=== PATIENT | male | born 1950 | race Caucasian/White ===

== ENCOUNTER 2016-11-25 08:55 | Inpatient (IN) | payer OTHER ==
[~2016-11-25] VITALS: Ht 182.9 cm; Wt 90.8 kg
[2016-11-25] VITALS (16 sets, daily range): BP systolic 107–149; BP diastolic 61–93
[~2016-11-25 08:55] MED LIST: AMARYL2 MG PO; AMLODIPINE-VAL1 EACH PO; CELEXA20 MG PO; ERGOCALCIF50000 UNIT PO; FLONASE16 G1 BOTH NARES; METFORMIN HCL500 M1 PO; PRILOSEC OTC20 MG PO; SINGULAIR10 MG PO; WELLBUTRIN XL150 MG PO
[2016-11-25 09:38] LABS: BASOPHIL COUNT 0.1 K/uL (0-0.1); EOSINOPHIL (%) 1.1 % (0-5); EOSINOPHIL COUNT 0.2 K/uL (0-0.3); HEMATOCRIT 18.5 % (38.0-50.0); IMMATURE GRANULOCYTE (%) 0.4 % (0.0-0.7); IMMATURE GRANULOCYTE COUNT 0.7 K/uL; LYMPHOCYTE COUNT 1.9 K/uL (1.0-2.8); MCH 24.8 PG (29.0-34.0); MCHC 30.3 G/DL (30.0-36.0); MCV 81.9 FL (86-99); MEAN PLAT.VOLUME 9.9 uM^3 (9.0-12.4); MONOCYTE (%) 5.5 % (3-12); MONOCYTE COUNT 0.9 K/uL (0-0.8); NEUTROPHIL (%) 80.6 % (45-76); NEUTROPHIL COUNT 12.7 K/uL (1.8-6.4); PLATELET COUNT 436 K/uL (156-360); RBC DIS.WIDTH-CV 14.8 % (11.8-14.6); RBC DIS.WIDTH-SD 41.9 % (39-53); RED BLOOD COUNT 2.26 M/uL (4.00-5.50); WHITE BLOOD COUNT 15.8 K/uL (4.1-10.2)
[2016-11-25 09:50] LABS: INTER. NORMALIZED RATIO 1.1; PROTHROMBIN TIME 10.8 (9.2-11.2); PTT 21.9 (25-32)
[2016-11-25 09:53] LABS: CHLORIDE 97 mEq/L (99-109); POTASSIUM 4.4 mEq/L (3.7-5.4); SODIUM 128 mEq/L (136-147)
[2016-11-25 09:55] LABS: GLUCOSE 283 mg/dL (70-99)
[2016-11-25 09:56] LABS: ANION GAP 17 MEQ/L (2-14)
[2016-11-25 09:59] LABS: GFR ESTIMATE (CALCULATED) > 59 mL/min/
[2016-11-25 10:01] LABS: TROP-I INTERPRETATION NEGATIVE; TROPONIN-I < 0.01 ng/mL (0.0-0.30)
[2016-11-25 10:06] LABS: UREA NITROGEN (BUN) 34 mg/dL (9-23)
[2016-11-25 10:16] LABS: HEMATOLOGY COMMENT 1 SMEAR COMPATIBLE; USER ID SDF
[2016-11-25] MEDS ORDERED: GLIMEPIRIDE2 MG PO (11:11)
[2016-11-25] MEDS ORDERED: METFORMIN HCL500 MG PO (11:12)
[2016-11-25] MEDS ORDERED: METFORMIN HCL500 M1 PO (11:13)
[2016-11-25 14:39] LABS: POINT-OF-CARE METER ID UU13113702
[2016-11-25 16:53] LABS: ADD MIUA? NO; BILIRUBIN NEGATIVE; BLOOD NEGATIVE; COLOR YELLOW ((YELLOW)); GLUCOSE (STRIP) 250; KETONES 15; LEUKOCYTES NEGATIVE; NITRITE NEGATIVE; PROTEIN (STRIP) NEGATIVE; SPECIFIC GRAVITY 1.024 (1.000-1.030); UCUL ADDED? NO; UROBILINOGEN 0.2 MG/DL (0.2-1.0)
[2016-11-25 21:23] LABS: POINT-OF-CARE METER ID UU14174216
[2016-11-25 21:59] LABS: HEMATOCRIT 22.5 % (38.0-50.0); MCV 80.1 FL (86-99)
[2016-11-26 00:43] VITALS: BP 125/66
[2016-11-26 02:11] LABS: HEMATOCRIT 23.1 % (38.0-50.0); MCV 79.4 FL (86-99)
[2016-11-26 03:59] VITALS: BP 148/72
[2016-11-26 05:53] LABS: POINT-OF-CARE METER ID UU13113698
[2016-11-26 06:45] LABS: HEMATOCRIT 22.4 % (38.0-50.0)
[2016-11-26 07:13] VITALS: BP 139/73
[2016-11-26 09:14] LABS: ALKALINE PHOSPHATASE 45 IU/L (3-129); ANION GAP 8 MEQ/L (2-14); CHLORIDE 102 MEQ/L (99-109); GFR ESTIMATE (CALCULATED) > 59 mL/min/; POTASSIUM 4.1 MEQ/L (3.7-5.4); SAMPLE HEMOLYSIS CHECK 0; SAMPLE ICTERIC CHECK 0; SAMPLE LIPEMIA CHECK 0; SODIUM 132 MEQ/L (136-147); TOTAL BILIRUBIN 0.6 MG/DL (0.0-1.0); UREA NITROGEN (BUN) 21 mg/dL (9-23)
[2016-11-26 09:23] LABS: GLUCOSE 117 mg/dL (70-99)
[2016-11-26 11:47] VITALS: BP 140/67
[2016-11-26 12:56] LABS: HEMATOCRIT 22.8 % (38.0-50.0); MCV 80.3 FL (86-99)
[2016-11-26 16:10] VITALS: BP 118/70
[2016-11-26 18:11] LABS: HEMATOCRIT 23.2 % (38.0-50.0); MCV 80.3 FL (86-99)
[2016-11-26 20:20] VITALS: BP 125/76
[2016-11-27] VITALS (12 sets, daily range): BP systolic 118–155; BP diastolic 65–83
[2016-11-27 01:15] LABS: POINT-OF-CARE METER ID UU14174216
[2016-11-27 06:49] LABS: EOSINOPHIL (%) 3.1 % (0-5); EOSINOPHIL COUNT 0.3 K/uL (0-0.3); HEMATOCRIT 21.2 % (38.0-50.0); IMMATURE GRANULOCYTE (%) 0.2 % (0.0-0.7); LYMPHOCYTE COUNT 1.4 K/uL (1.0-2.8); MCV 81.9 FL (86-99); MONOCYTE (%) 11.5 % (3-12); NEUTROPHIL (%) 67.7 % (45-76); NEUTROPHIL COUNT 5.7 K/uL (1.8-6.4); RBC DIS.WIDTH-SD 47.3 % (39-53); RED BLOOD COUNT 2.59 M/uL (4.00-5.50)
[2016-11-27 06:54] LABS: WHITE BLOOD COUNT 8.4 K/uL (4.1-10.2)
[2016-11-27 07:03] LABS: ANION GAP 6 MEQ/L (2-14); CHLORIDE 102 MEQ/L (99-109); GFR ESTIMATE (CALCULATED) > 59 mL/min/; GLUCOSE 111 mg/dL (70-99); SAMPLE HEMOLYSIS CHECK 0; SAMPLE ICTERIC CHECK 0; SAMPLE LIPEMIA CHECK 0; SODIUM 133 MEQ/L (136-147); UREA NITROGEN (BUN) 9 mg/dL (9-23)
[2016-11-27 07:47] LABS: MEAN PLAT.VOLUME 9.8 uM^3 (9.0-12.4)
[2016-11-27 08:48] LABS: PLATELET COUNT 240 K/uL (156-360)
[2016-11-27 21:10] LABS: POINT-OF-CARE METER ID UU13113781
[2016-11-28] VITALS (7 sets, daily range): BP systolic 119–159; BP diastolic 56–90
[2016-11-28 07:22] LABS: ALKALINE PHOSPHATASE 54 IU/L (3-129); ANION GAP 8 MEQ/L (2-14); CHLORIDE 101 MEQ/L (99-109); GFR ESTIMATE (CALCULATED) > 59 mL/min/; GLUCOSE 122 mg/dL (70-99); SAMPLE HEMOLYSIS CHECK 0; SAMPLE ICTERIC CHECK 0; SAMPLE LIPEMIA CHECK 0; SODIUM 133 MEQ/L (136-147); TOTAL BILIRUBIN 0.5 MG/DL (0.0-1.0); UREA NITROGEN (BUN) 8 mg/dL (9-23)
[2016-11-28 07:38] LABS: EOSINOPHIL (%) 3.3 % (0-5); EOSINOPHIL COUNT 0.3 K/uL (0-0.3); HEMATOCRIT 26.6 % (38.0-50.0); IMMATURE GRANULOCYTE (%) 0.2 % (0.0-0.7); LYMPHOCYTE COUNT 1.3 K/uL (1.0-2.8); MCH 27.4 PG (29.0-34.0); MCHC 33.1 G/DL (30.0-36.0); MCV 82.9 FL (86-99); MEAN PLAT.VOLUME 9.8 uM^3 (9.0-12.4); MONOCYTE (%) 12.1 % (3-12); MONOCYTE COUNT 1.1 K/uL (0-0.8); NEUTROPHIL (%) 69.5 % (45-76); NEUTROPHIL COUNT 6.1 K/uL (1.8-6.4); PLATELET COUNT 247 K/uL (156-360); RBC DIS.WIDTH-CV 15.7 % (11.8-14.6); RBC DIS.WIDTH-SD 47.2 % (39-53); WHITE BLOOD COUNT 8.7 K/uL (4.1-10.2)
[2016-11-28 07:41] LABS: RED BLOOD COUNT 3.21 M/uL (4.00-5.50)
[2016-11-28 14:08] LABS: POINT-OF-CARE METER ID UU13113819
[2016-11-29 06:20] LABS: POINT-OF-CARE METER ID UU13113717
[2016-11-29 08:38] LABS: EOSINOPHIL COUNT 0.2 K/uL (0-0.3); HEMATOCRIT 30.2 % (38.0-50.0); IMMATURE GRANULOCYTE (%) 0.3 % (0.0-0.7); LYMPHOCYTE COUNT 0.9 K/uL (1.0-2.8); MCH 27.2 PG (29.0-34.0); MCHC 32.1 G/DL (30.0-36.0); MCV 84.8 FL (86-99); MEAN PLAT.VOLUME 10.2 uM^3 (9.0-12.4); MONOCYTE (%) 10.7 % (3-12); MONOCYTE COUNT 0.8 K/uL (0-0.8); NEUTROPHIL (%) 73.5 % (45-76); NEUTROPHIL COUNT 5.6 K/uL (1.8-6.4); PLATELET COUNT 296 K/uL (156-360); RBC DIS.WIDTH-CV 15.9 % (11.8-14.6); RBC DIS.WIDTH-SD 48.7 % (39-53); RED BLOOD COUNT 3.56 M/uL (4.00-5.50); WHITE BLOOD COUNT 7.6 K/uL (4.1-10.2)
[2016-11-29 08:40] VITALS: BP 144/81
[2016-11-29 11:37] LABS: POINT-OF-CARE METER ID UU13113717
== END 2016-11-29 12:43 | disposition home or self-care (01) | DRG 378 ==
LOC: EME 08:55 → 4EAST 10:04 → 5EAST 10:04 → EDOF 10:04 → 4EAST 19:02 → 5EAST 11-28 23:57
PROVIDERS: Emergency Medicine; Hospitalist; Internal Medicine
PROC: 30233N1 Transfusion of Nonautologous Red Blood Cells into Peripheral Vein, Percutaneous Approach (ICD-10-PCS; principal; 2016-11-25)
PROC: 0DB38ZX Excision of Lower Esophagus, Via Natural or Artificial Opening Endoscopic, Diagnostic (ICD-10-PCS; 2016-11-28)
DX: K92.2 Gastrointestinal hemorrhage, unspecified (principal); K22.8 Other specified diseases of esophagus; D62 Acute posthemorrhagic anemia; E87.2 Acidosis; I10 Essential (primary) hypertension; E11.9 Type 2 diabetes mellitus without complications; D50.0 Iron deficiency anemia secondary to blood loss (chronic); K59.00 Constipation, unspecified; K21.9 Gastro-esophageal reflux disease without esophagitis; R63.0 Anorexia; E87.1 Hypo-osmolality and hyponatremia
CPT/HCPCS: 71010; 74000; 80048; 80053; 81003; 82948; 84484; 85014; 85018; 85025; 85610; 85730; 86850; 86900; 86901; 86920; 87169; 87177; 88305; 88341 TC; 88342 TC; 93005; 99281; 99285; B4087; C9113; J1815; J7030; J7120; P9016

== ENCOUNTER 2016-12-05 23:38 | Emergency (ER) | payer OTHER ==
[~2016-12-05] VITALS: Ht 182.9 cm; Wt 100.0 kg
[~2016-12-05 23:38] MED LIST changes: +GLIMEPIRIDE2 MG PO; +METFORMIN HCL500 MG PO
[2016-12-06 00:05] LABS: HEMATOCRIT 18.8 % (38.0-50.0); MCH 26.1 PG (29.0-34.0); MCHC 30.9 G/DL (30.0-36.0); MCV 84.7 FL (86-99); MEAN PLAT.VOLUME 10.4 uM^3 (9.0-12.4); RBC DIS.WIDTH-CV 15.1 % (11.8-14.6); RBC DIS.WIDTH-SD 44.1 % (39-53); RED BLOOD COUNT 2.22 M/uL (4.00-5.50); WHITE BLOOD COUNT 17.3 K/uL (4.1-10.2)
[2016-12-06 00:06] LABS: PLATELET COUNT 496 K/uL (156-360)
[2016-12-06 00:08] LABS: CHLORIDE 97 mEq/L (99-109); POTASSIUM 4.4 mEq/L (3.7-5.4); SODIUM 130 mEq/L (136-147)
[2016-12-06 00:09] LABS: GLUCOSE 222 mg/dL (70-99)
[2016-12-06 00:11] LABS: ANION GAP 18 MEQ/L (2-14)
[2016-12-06 00:13] LABS: GFR ESTIMATE (CALCULATED) > 59 mL/min/
[2016-12-06 00:14] LABS: UREA NITROGEN (BUN) 21 mg/dL (9-23)
[2016-12-06 01:42] LABS: PROTHROMBIN TIME 10.5 (9.2-11.2)
[2016-12-06 01:50] LABS: PTT 19.8 (25-32)
[2016-12-06 02:03] VITALS: BP 127/71
[2016-12-06 02:23] VITALS: BP 108/66
[2016-12-06 03:00] VITALS: BP 122/67
== END 2016-12-06 03:09 | disposition short-term general hospital (02) ==
LOC: EME 23:38
PROVIDERS: Emergency Medicine
PROC: 30233N1 Transfusion of Nonautologous Red Blood Cells into Peripheral Vein, Percutaneous Approach (ICD-10-PCS; principal; 2016-12-05)
DX: K92.0 Hematemesis (principal); D64.9 Anemia, unspecified; C15.9 Malignant neoplasm of esophagus, unspecified; I10 Essential (primary) hypertension; E11.9 Type 2 diabetes mellitus without complications
CPT/HCPCS: 80048; 85027; 85610; 85730; 86850; 86900; 86901; 86920; 99281; 99285; C9113; J2405; J7030; P9016

== ENCOUNTER 2016-12-15 00:26 | Inpatient (IN) | payer OTHER ==
[~2016-12-15] VITALS: Ht 182.9 cm; Wt 90.0 kg
[2016-12-15] VITALS (16 sets, daily range): BP systolic 109–159; BP diastolic 69–83
[2016-12-15 00:56] LABS: HEMATOCRIT 18.8 % (38.0-50.0); MCH 26.2 PG (29.0-34.0); MCHC 30.9 G/DL (30.0-36.0); MCV 85.1 FL (86-99); MEAN PLAT.VOLUME 9.6 uM^3 (9.0-12.4); PLATELET COUNT 465 K/uL (156-360); RBC DIS.WIDTH-SD 43.9 % (39-53); RED BLOOD COUNT 2.21 M/uL (4.00-5.50); WHITE BLOOD COUNT 12.4 K/uL (4.1-10.2)
[2016-12-15 01:00] LABS: CHLORIDE 102 mEq/L (99-109); POTASSIUM 4.1 mEq/L (3.7-5.4); SODIUM 132 mEq/L (136-147)
[2016-12-15 01:02] LABS: GLUCOSE 137 mg/dL (70-99)
[2016-12-15 01:03] LABS: ANION GAP 12 MEQ/L (2-14)
[2016-12-15 01:05] LABS: GFR ESTIMATE (CALCULATED) > 59 mL/min/
[2016-12-15 01:06] LABS: UREA NITROGEN (BUN) 13 mg/dL (9-23)
[2016-12-15 01:42] LABS: INTER. NORMALIZED RATIO 1.1; PROTHROMBIN TIME 10.8 (9.2-11.2); PTT 24.5 (25-32)
[2016-12-15 01:49] LABS: TROP-I INTERPRETATION NEGATIVE; TROPONIN-I < 0.01 ng/mL (0.0-0.30)
[2016-12-15 04:08] LABS: ADD MIUA? NO; BILIRUBIN NEGATIVE; BLOOD NEGATIVE; COLOR YELLOW ((YELLOW)); GLUCOSE (STRIP) 100; KETONES NEGATIVE; LEUKOCYTES NEGATIVE; NITRITE NEGATIVE; PROTEIN (STRIP) NEGATIVE; UCUL ADDED? NO; UROBILINOGEN 0.2 MG/DL (0.2-1.0)
[2016-12-15 13:21] LABS: HEMATOCRIT 22.1 % (38.0-50.0); MCV 84.7 FL (86-99)
[2016-12-15 13:32] LABS: CHLORIDE 100 mEq/L (99-109); POTASSIUM 3.9 mEq/L (3.7-5.4); SODIUM 131 mEq/L (136-147)
[2016-12-15 13:34] LABS: GLUCOSE 126 mg/dL (70-99)
[2016-12-15 13:36] LABS: ANION GAP 11 MEQ/L (2-14)
[2016-12-15 13:38] LABS: GFR ESTIMATE (CALCULATED) > 59 mL/min/
[2016-12-15 13:39] LABS: UREA NITROGEN (BUN) 24 mg/dL (9-23)
[2016-12-15] MEDS ORDERED: COMPAZINE10 MG PO (16:35)
[2016-12-15] MEDS ORDERED: ZOFRAN4 MG PO (16:36)
[2016-12-16] VITALS (9 sets, daily range): BP systolic 121–142; BP diastolic 66–80
[2016-12-16 09:28] LABS: HEMATOCRIT 21.2 % (38.0-50.0); MCV 84.8 FL (86-99); RBC DIS.WIDTH-CV 14.8 % (11.8-14.6); RBC DIS.WIDTH-SD 45.6 % (39-53); WHITE BLOOD COUNT 11.5 K/uL (4.1-10.2)
[2016-12-16 10:33] LABS: ANION GAP 7 MEQ/L (2-14); CHLORIDE 100 MEQ/L (99-109); GFR ESTIMATE (CALCULATED) > 59 mL/min/; GLUCOSE 156 mg/dL (70-99); POTASSIUM 4.3 MEQ/L (3.7-5.4); SAMPLE HEMOLYSIS CHECK 0; SAMPLE ICTERIC CHECK 0; SAMPLE LIPEMIA CHECK 0; SODIUM 129 MEQ/L (136-147); UREA NITROGEN (BUN) 26 mg/dL (9-23)
[2016-12-16 11:05] LABS: MEAN PLAT.VOLUME 9.8 uM^3 (9.0-12.4)
[2016-12-16 11:06] LABS: PLATELET COUNT 267 K/uL (156-360)
[2016-12-17 00:16] VITALS: BP 136/74
[2016-12-17 04:04] VITALS: BP 135/77
[2016-12-17 07:09] VITALS: BP 135/80
[2016-12-17 07:18] LABS: HEMATOCRIT 24.4 % (38.0-50.0); MCH 28.2 PG (29.0-34.0); MCHC 33.2 G/DL (30.0-36.0); PLATELET COUNT 249 K/uL (156-360); RBC DIS.WIDTH-CV 15.4 % (11.8-14.6); RBC DIS.WIDTH-SD 47.5 % (39-53); RED BLOOD COUNT 2.87 M/uL (4.00-5.50); WHITE BLOOD COUNT 9.5 K/uL (4.1-10.2)
[2016-12-17 07:45] LABS: ANION GAP 7 MEQ/L (2-14); CHLORIDE 102 MEQ/L (99-109); GFR ESTIMATE (CALCULATED) > 59 mL/min/; GLUCOSE 119 mg/dL (70-99); POTASSIUM 4.2 MEQ/L (3.7-5.4); SAMPLE HEMOLYSIS CHECK 0; SAMPLE ICTERIC CHECK 0; SAMPLE LIPEMIA CHECK 0; SODIUM 133 MEQ/L (136-147); UREA NITROGEN (BUN) 12 mg/dL (9-23)
[2016-12-17 10:51] VITALS: BP 132/73
[2016-12-17 12:56] LABS: HEMATOCRIT 25.4 % (38.0-50.0); MCV 84.9 FL (86-99)
[2016-12-17 16:01] VITALS: BP 111/65
== END 2016-12-17 16:17 | disposition home or self-care (01) | DRG 375 ==
LOC: EME 00:26 → EDOF 04:12 → 5EAST 14:23 → EDOF 14:23 → 5EAST 15:58
PROVIDERS: Emergency Medicine; Hospitalist; Internal Medicine; Physician Assistant Medical
PROC: 30233N1 Transfusion of Nonautologous Red Blood Cells into Peripheral Vein, Percutaneous Approach (ICD-10-PCS; principal; 2016-12-15)
PROC: 3E03305 Introduction of Other Antineoplastic into Peripheral Vein, Percutaneous Approach (ICD-10-PCS; 2016-12-16)
PROC: DD0 Radiation Therapy, Gastrointestinal System, Beam Radiation (ICD-10-PCS; 2016-12-16)
DX: C15.5 Malignant neoplasm of lower third of esophagus (principal); D62 Acute posthemorrhagic anemia; K92.1 Melena; E87.2 Acidosis; E87.1 Hypo-osmolality and hyponatremia; D72.89 Other specified disorders of white blood cells; E11.9 Type 2 diabetes mellitus without complications; I10 Essential (primary) hypertension; E78.5 Hyperlipidemia, unspecified; K21.9 Gastro-esophageal reflux disease without esophagitis; F32.9 Major depressive disorder, single episode, unspecified; F41.9 Anxiety disorder, unspecified; Z87.891 Personal history of nicotine dependence
CPT/HCPCS: 71020; 77280; 77295; 77300; 77334; 77412; 80048; 80048 91; 81003; 83605; 84484; 85014; 85018; 85027; 85610; 85730; 86850; 86900; 86901; 86920; 87040; 93005; 99281; 99285; C9113; J1940; J2405; J7030; P9016

== ENCOUNTER 2017-07-02 15:15 | Inpatient (IN) | payer OTHER ==
[~2017-07-02] VITALS: Ht 182.9 cm; Wt 78.9 kg
[~2017-07-02 15:15] MED LIST changes: +COMPAZINE10 MG PO; +ZOFRAN4 MG PO
[2017-07-02 15:54] LABS: EOSINOPHIL (%) 0.2 % (0-5); HEMATOCRIT 31.4 % (38.0-50.0); IMMATURE GRANULOCYTE (%) 0.8 % (0.0-0.7); IMMATURE GRANULOCYTE COUNT 0.1 K/uL; INSTRUMENT ABS NEUTROPHIL CT 12.7 K/uL; LYMPHOCYTE COUNT 0.8 K/uL (1.0-2.8); MCH 28.9 PG (29.0-34.0); MCHC 33.8 G/DL (30.0-36.0); MEAN PLAT.VOLUME 9.9 uM^3 (9.0-12.4); MONOCYTE (%) 9.7 % (3-12); MONOCYTE COUNT 1.5 K/uL (0-0.8); NEUTROPHIL (%) 83.8 % (45-76); NEUTROPHIL COUNT 12.7 K/uL (1.8-6.4); RBC DIS.WIDTH-CV 13.2 % (11.8-14.6); RBC DIS.WIDTH-SD 40.9 % (39-53); RED BLOOD COUNT 3.67 M/uL (4.00-5.50); WHITE BLOOD COUNT 15.2 K/uL (4.1-10.2)
[2017-07-02 15:57] LABS: MCV 85.6 FL (86-99); PLATELET COUNT 362 K/uL (156-360)
[2017-07-02 16:00] LABS: INTER. NORMALIZED RATIO 1.3; PROTHROMBIN TIME 14.6 SEC (10.2-12.9)
[2017-07-02 16:02] LABS: CHLORIDE 92 mEq/L (99-109); POTASSIUM 4.2 mEq/L (3.7-5.4); SODIUM 129 mEq/L (136-147)
[2017-07-02 16:04] LABS: GLUCOSE 141 mg/dL (70-99)
[2017-07-02 16:06] LABS: ANION GAP 10 MEQ/L (2-14); TOTAL BILIRUBIN 0.4 mg/dL (0.0-1.0)
[2017-07-02 16:08] LABS: ALKALINE PHOSPHATASE 185 IU/L (3-129); GFR ESTIMATE (CALCULATED) 50 mL/min/
[2017-07-02 16:09] LABS: UREA NITROGEN (BUN) 31 mg/dL (9-23)
[2017-07-02] MEDS ORDERED: AMLOD-VALSA-HC1 EAC2 PO (17:51)
[2017-07-02] MEDS ORDERED: IMODIUM A-D2 M2 PO (17:51)
[2017-07-02] MEDS ORDERED: MIRALAX17 GM PO (17:51)
[2017-07-02] MEDS ORDERED: OLANZAPINE10 MG PO (17:52)
[2017-07-02 19:11] LABS: ALKALINE PHOSPHATASE 150 IU/L (3-129)
[2017-07-02 19:12] LABS: TOTAL BILIRUBIN 0.3 mg/dL (0.0-1.0)
[2017-07-02 19:14] LABS: DIRECT BILIRUBIN 0.2 mg/dL (0.0-0.3)
[2017-07-02 19:16] LABS: ADD MIUA? YES; BILIRUBIN NEGATIVE; BLOOD SMALL; COLOR YELLOW ((YELLOW)); GLUCOSE (STRIP) 50; KETONES NEGATIVE; LEUKOCYTES NEGATIVE; NITRITE NEGATIVE; PROTEIN (STRIP) NEGATIVE; SPECIFIC GRAVITY 1.014 (1.000-1.030); UROBILINOGEN 0.2 MG/DL (0.2-1.0)
[2017-07-02 19:21] LABS: BACTERIA NONE SEEN /HPF; EPITHELIAL CELLS RARE /HPF; GRANULAR CASTS 0-5 /LPF; MUCUS TRACE /LPF; UCUL ADDED? YES
[2017-07-02 20:31] LABS: TROP-I INTERPRETATION NEGATIVE; TROPONIN-I < 0.01 ng/mL (0.0-0.30)
[2017-07-02 21:04] LABS: HEMATOCRIT 24.8 % (38.0-50.0); MCH 28.8 PG (29.0-34.0); MCHC 33.1 G/DL (30.0-36.0); MEAN PLAT.VOLUME 9.9 uM^3 (9.0-12.4); PLATELET COUNT 279 K/uL (156-360); RBC DIS.WIDTH-CV 13.1 % (11.8-14.6); RBC DIS.WIDTH-SD 41.8 % (39-53); WHITE BLOOD COUNT 12.1 K/uL (4.1-10.2)
[2017-07-02 21:25] LABS: RED BLOOD COUNT 2.85 M/uL (4.00-5.50)
[2017-07-02 23:00] VITALS: BP 100/57
[2017-07-03 01:44] LABS: POTASSIUM 4.1 mEq/L (3.7-5.4); SODIUM 131 mEq/L (136-147)
[2017-07-03 01:46] LABS: CHLORIDE 102 mEq/L (99-109); GLUCOSE 65 mg/dL (70-99)
[2017-07-03 01:47] LABS: ANION GAP 7 MEQ/L (2-14)
[2017-07-03 01:49] LABS: GFR ESTIMATE (CALCULATED) > 59 mL/min/
[2017-07-03 01:50] LABS: UREA NITROGEN (BUN) 34 mg/dL (9-23)
[2017-07-03 01:53] LABS: TROP-I INTERPRETATION NEGATIVE; TROPONIN-I < 0.01 ng/mL (0.0-0.30)
[2017-07-03 03:30] VITALS: BP 124/73
[2017-07-03 07:28] VITALS: BP 122/90
[2017-07-03 08:45] LABS: HEMATOCRIT 23.8 % (38.0-50.0); MCV 87.8 FL (86-99)
[2017-07-03 09:08] LABS: TROP-I INTERPRETATION NEGATIVE; TROPONIN-I < 0.01 ng/mL (0.0-0.30)
[2017-07-03 09:10] LABS: INTERNAL CONTROL VALID? YES
[2017-07-03 09:43] LABS: HEMATOCRIT 23.9 % (38.0-50.0); MCV 88.2 FL (86-99)
[2017-07-03 10:13] LABS: INTACT PARATHYROID HORMONE 7 pg/mL (10-69)
[2017-07-03 12:42] LABS: HEMATOCRIT 23.7 % (38.0-50.0); MCV 88.1 FL (86-99)
[2017-07-03 14:24] VITALS: BP 119/72
[2017-07-03 16:45] VITALS: BP 119/75
[2017-07-03 20:32] VITALS: BP 126/73
[2017-07-04 00:56] VITALS: BP 130/76
[2017-07-04 04:48] VITALS: BP 120/63
[2017-07-04 06:15] LABS: ANION GAP 8 MEQ/L (2-14); CHLORIDE 103 MEQ/L (99-109); GFR ESTIMATE (CALCULATED) > 59 mL/min/; GLUCOSE 46 mg/dL (70-99); POTASSIUM 3.7 MEQ/L (3.7-5.4); SAMPLE HEMOLYSIS CHECK 0; SAMPLE ICTERIC CHECK 0; SAMPLE LIPEMIA CHECK 0; SODIUM 135 MEQ/L (136-147); UREA NITROGEN (BUN) 16 mg/dL (9-23)
[2017-07-04 07:45] VITALS: BP 131/80
[2017-07-04 08:39] LABS: POINT-OF-CARE METER ID UU13113781
[2017-07-04 09:37] LABS: POINT-OF-CARE METER ID UU13113781
[2017-07-04 11:56] VITALS: BP 136/78
[2017-07-04 16:35] LABS: POINT-OF-CARE METER ID UU13113675; POINT-OF-CARE USER ID ADMSLT55
[2017-07-04 18:55] LABS: POINT-OF-CARE METER ID UU13113675
[2017-07-04 19:58] VITALS: BP 136/78
[2017-07-04 23:55] VITALS: BP 112/61
[2017-07-05 04:50] VITALS: BP 118/65
[2017-07-05 06:48] LABS: ANION GAP 7 MEQ/L (2-14); CHLORIDE 104 MEQ/L (99-109); GFR ESTIMATE (CALCULATED) > 59 mL/min/; POTASSIUM 3.7 MEQ/L (3.7-5.4); SAMPLE HEMOLYSIS CHECK 0; SAMPLE ICTERIC CHECK 0; SAMPLE LIPEMIA CHECK 0; SODIUM 135 MEQ/L (136-147); UREA NITROGEN (BUN) 14 mg/dL (9-23)
[2017-07-05 06:49] LABS: GLUCOSE 128 mg/dL (70-99)
[2017-07-05 07:30] VITALS: BP 140/74
[2017-07-05 09:23] LABS: EOSINOPHIL (%) 2.6 % (0-5); EOSINOPHIL COUNT 0.2 K/uL (0-0.3); HEMATOCRIT 21.8 % (38.0-50.0); IMMATURE GRANULOCYTE (%) 0.5 % (0.0-0.7); INSTRUMENT ABS NEUTROPHIL CT 5.2 K/uL; LYMPHOCYTE COUNT 0.4 K/uL (1.0-2.8); MCH 29.1 PG (29.0-34.0); MCV 88.3 FL (86-99); MEAN PLAT.VOLUME 10.3 uM^3 (9.0-12.4); MONOCYTE (%) 13.4 % (3-12); MONOCYTE COUNT 0.9 K/uL (0-0.8); NEUTROPHIL (%) 77.8 % (45-76); NEUTROPHIL COUNT 5.2 K/uL (1.8-6.4); PLATELET COUNT 223 K/uL (156-360); RBC DIS.WIDTH-CV 13.2 % (11.8-14.6); RBC DIS.WIDTH-SD 42.5 % (39-53); RED BLOOD COUNT 2.47 M/uL (4.00-5.50); WHITE BLOOD COUNT 6.7 K/uL (4.1-10.2)
[2017-07-05 11:23] VITALS: BP 97/64
[2017-07-05] MEDS ORDERED: PANTOPRAZOLE SO40 MG PO (14:26)
[2017-07-07] MEDS ORDERED: ATIVAN0.5 MG PO (11:26)
== END 2017-07-05 16:02 | disposition home or self-care (01) | DRG 375 ==
LOC: EME 15:15 → 4EAST 19:05 → EDOF 19:05 → ENRESERV 19:06 → 4EAST 20:57
PROVIDERS: Emergency Medicine; Hospitalist; Internal Medicine
PROC: 0JH60XZ Insertion of Tunneled Vascular Access Device into Chest Subcutaneous Tissue and Fascia, Open Approach (ICD-10-PCS; principal; 2017-07-05)
DX: C15.9 Malignant neoplasm of esophagus, unspecified (principal); K92.1 Melena; N17.9 Acute kidney failure, unspecified; E83.52 Hypercalcemia; K21.9 Gastro-esophageal reflux disease without esophagitis; I10 Essential (primary) hypertension; D62 Acute posthemorrhagic anemia; F32.9 Major depressive disorder, single episode, unspecified; E78.5 Hyperlipidemia, unspecified; E05.90 Thyrotoxicosis, unspecified without thyrotoxic crisis or storm; E86.0 Dehydration; E11.649 Type 2 diabetes mellitus with hypoglycemia without coma; I95.9 Hypotension, unspecified; F41.9 Anxiety disorder, unspecified; D3A.8 Other benign neuroendocrine tumors; I87.8 Other specified disorders of veins; C78.7 Secondary malignant neoplasm of liver and intrahepatic bile duct; E87.1 Hypo-osmolality and hyponatremia; Z85.828 Personal history of other malignant neoplasm of skin; Z87.891 Personal history of nicotine dependence; Z92.3 Personal history of irradiation; Z92.21 Personal history of antineoplastic chemotherapy
CPT/HCPCS: 71010; 80048; 80053; 80069; 80076; 81003; 82306; 82330; 82652; 82948; 83519 90; 83605; 83970; 84484; 85014; 85018; 85025; 85027; 85610; 85730; 86900; 86901; 87040; 87070; 87086; 87205; 87449; 99281; 99285; C1751; C9113; G0378; J0456; J0690; J0696; J2250; J2765; J3010; J3489; J7030; J7042; J7050

== ENCOUNTER 2017-07-19 20:28 | Inpatient (IN) | payer OTHER ==
[~2017-07-19] VITALS: Ht 182.9 cm; Wt 75.0 kg
[~2017-07-19 20:28] MED LIST changes: +AMLOD-VALSA-HC1 EAC2 PO; +ATIVAN0.5 MG PO; +IMODIUM A-D2 M2 PO; +MIRALAX17 GM PO; +OLANZAPINE10 MG PO; +PANTOPRAZOLE SO40 MG PO
[2017-07-19 21:04] LABS: HEMATOCRIT 24.7 % (38.0-50.0); MCH 27.9 PG (29.0-34.0); MCHC 32.4 G/DL (30.0-36.0); MCV 86.1 FL (86-99); MEAN PLAT.VOLUME 10.3 uM^3 (9.0-12.4); PLATELET COUNT 293 K/uL (156-360); RBC DIS.WIDTH-CV 14.1 % (11.8-14.6); RBC DIS.WIDTH-SD 44.8 % (39-53); RED BLOOD COUNT 2.87 M/uL (4.00-5.50); WHITE BLOOD COUNT 6.3 K/uL (4.1-10.2)
[2017-07-19 21:05] LABS: INTER. NORMALIZED RATIO 1.4; PROTHROMBIN TIME 15.2 SEC (10.2-12.9)
[2017-07-19 21:06] LABS: CHLORIDE 99 mEq/L (99-109); POTASSIUM 4.7 mEq/L (3.7-5.4); SODIUM 128 mEq/L (136-147)
[2017-07-19 21:08] LABS: GLUCOSE 147 mg/dL (70-99); PTT 27.5 SEC (25-37)
[2017-07-19 21:10] LABS: ANION GAP 13 MEQ/L (2-14); TOTAL BILIRUBIN 0.5 mg/dL (0.0-1.0)
[2017-07-19 21:12] LABS: ALKALINE PHOSPHATASE 279 IU/L (3-129); GFR ESTIMATE (CALCULATED) 50 mL/min/
[2017-07-19 21:14] LABS: DIRECT BILIRUBIN 0.3 mg/dL (0.0-0.3)
[2017-07-19 21:16] LABS: UREA NITROGEN (BUN) 44 mg/dL (9-23)
[2017-07-19 22:11] VITALS: BP 106/68
[2017-07-19 22:31] VITALS: BP 89/57
[2017-07-19 23:30] VITALS: BP 102/63
[2017-07-20] VITALS (11 sets, daily range): BP systolic 103–118; BP diastolic 60–77
[2017-07-20 06:46] LABS: HEMATOCRIT 23.3 % (38.0-50.0); MCH 28.5 PG (29.0-34.0); MCHC 33.5 G/DL (30.0-36.0); RBC DIS.WIDTH-CV 14.5 % (11.8-14.6); RED BLOOD COUNT 2.74 M/uL (4.00-5.50); WHITE BLOOD COUNT 3.3 K/uL (4.1-10.2)
[2017-07-20 06:57] LABS: ANION GAP 7 MEQ/L (2-14); CHLORIDE 105 MEQ/L (99-109); POTASSIUM 4.5 MEQ/L (3.7-5.4); SAMPLE HEMOLYSIS CHECK 0; SAMPLE ICTERIC CHECK 0; SAMPLE LIPEMIA CHECK 0; SODIUM 131 MEQ/L (136-147); UREA NITROGEN (BUN) 34 mg/dL (9-23)
[2017-07-20 06:58] LABS: GLUCOSE 86 mg/dL (70-99)
[2017-07-20 06:59] LABS: GFR ESTIMATE (CALCULATED) > 59 mL/min/
[2017-07-20 07:33] LABS: MEAN PLAT.VOLUME 10.5 uM^3 (9.0-12.4); PLAT.SUFFICIENCY ADEQUATE
[2017-07-20 07:59] LABS: PLATELET COUNT 164 K/uL (156-360)
[2017-07-20] MEDS ORDERED: VITAMIN D35000 UNIT PO (14:58)
[2017-07-20] MEDS ORDERED: DECADRON2 MG PO (14:58)
[2017-07-20] MEDS ORDERED: AMLODIPINE-VAL1 EACH PO (14:58)
[2017-07-21 04:50] VITALS: BP 117/71
[2017-07-21 05:49] LABS: HEMATOCRIT 24.3 % (38.0-50.0); MCH 27.4 PG (29.0-34.0); MCHC 32.5 G/DL (30.0-36.0); MCV 84.4 FL (86-99); MEAN PLAT.VOLUME 10.6 uM^3 (9.0-12.4); PLATELET COUNT 196 K/uL (156-360); RBC DIS.WIDTH-CV 14.4 % (11.8-14.6); RED BLOOD COUNT 2.88 M/uL (4.00-5.50); WHITE BLOOD COUNT 3.5 K/uL (4.1-10.2)
[2017-07-21 06:14] LABS: ANION GAP 6 MEQ/L (2-14); CHLORIDE 101 MEQ/L (99-109); GFR ESTIMATE (CALCULATED) > 59 mL/min/; GLUCOSE 101 mg/dL (70-99); POTASSIUM 4.7 MEQ/L (3.7-5.4); SAMPLE HEMOLYSIS CHECK 0; SAMPLE ICTERIC CHECK 0; SAMPLE LIPEMIA CHECK 0; SODIUM 130 MEQ/L (136-147); UREA NITROGEN (BUN) 20 mg/dL (9-23)
[2017-07-21 07:58] LABS: POINT-OF-CARE USER ID NUTSLF44
[2017-07-21 09:29] VITALS: BP 98/54
[2017-07-21 09:45] VITALS: BP 100/63
[2017-07-21 11:12] LABS: POINT-OF-CARE USER ID NUTSLF44
[2017-07-21 11:22] VITALS: BP 108/69
== END 2017-07-21 13:21 | disposition home or self-care (01) | DRG 378 ==
LOC: EME 20:28 → EDOF 22:41 → ENRESERV 22:42 → EDOF 07-20 00:16 → 4EAST 07-20 00:18 → ENPENDDIS 07-21 → 4EAST 07-21 13:21
PROVIDERS: Emergency Medicine; Hospitalist
PROC: 30233N1 Transfusion of Nonautologous Red Blood Cells into Peripheral Vein, Percutaneous Approach (ICD-10-PCS; principal; 2017-07-19)
DX: K92.1 Melena (principal); N17.9 Acute kidney failure, unspecified; D61.818 Other pancytopenia; E87.1 Hypo-osmolality and hyponatremia; I10 Essential (primary) hypertension; R00.0 Tachycardia, unspecified; E78.5 Hyperlipidemia, unspecified; F41.9 Anxiety disorder, unspecified; K21.9 Gastro-esophageal reflux disease without esophagitis; E11.9 Type 2 diabetes mellitus without complications; F32.9 Major depressive disorder, single episode, unspecified; C15.9 Malignant neoplasm of esophagus, unspecified; K59.00 Constipation, unspecified; Z87.891 Personal history of nicotine dependence; Z92.21 Personal history of antineoplastic chemotherapy; Z79.84 Long term (current) use of oral hypoglycemic drugs; Z85.828 Personal history of other malignant neoplasm of skin; Z92.3 Personal history of irradiation; Z79.899 Other long term (current) drug therapy
CPT/HCPCS: 80048; 80076; 82948; 85027; 85610; 85730; 86850; 86900; 86901; 86920; 99281; 99285; C9113; J0780; J7030; P9016